=== PATIENT | female | born 1950 ===

== ENCOUNTER 2017-08-11 09:10 | Outpatient (CLI) | payer MEDICARE | END 2017-08-11 11:10 | disposition home or self-care (01) | LOC: ECT 09:10 | DX: F33.2 Major depressive disorder, recurrent severe without psychotic features (principal); F34.1 Dysthymic disorder; F60.9 Personality disorder, unspecified; R73.03 Prediabetes; M19.90 Unspecified osteoarthritis, unspecified site; M85.80 Other specified disorders of bone density and structure, unspecified site; M47.892 Other spondylosis, cervical region; Z81.8 Family history of other mental and behavioral disorders; Z91.5 Personal history of self-harm; N18.2 Chronic kidney disease, stage 2 (mild); Z85.828 Personal history of other malignant neoplasm of skin ==

== ENCOUNTER 2017-08-24 09:05 | Outpatient (RCR) | payer MEDICARE ==
[~2017-08-24] VITALS: Ht 162.6 cm; Wt 75.7 kg
[2017-08-24] MEDS ORDERED: Midazolam 2mg/2ml Inj ONE ×2 (09:06)
[2017-08-24] MEDS ORDERED: NS 500ML ONE ×2 (09:06)
[2017-08-24] MEDS ORDERED: Methohexital Sodium Syr 100mg/10ml IVP ONE ×2 (09:06)
[2017-08-24] MEDS ORDERED: Succinylcholine 20mg/ml 10ml vial ONE ×2 (09:06)
[2017-08-24 11:57] VITALS: BP 120/79
[2017-08-24] MEDS ORDERED: Sodium Chloride 500ML 500 ML IV ONE (12:08)
[2017-08-24 12:10] VITALS: BP 125/67
[2017-08-24 12:15] VITALS: BP 115/65
[2017-08-24 12:20] VITALS: BP 120/69
[2017-08-24 12:25] VITALS: BP 122/76
[2017-08-26] VITALS (7 sets, daily range): BP systolic 115–127; BP diastolic 61–79
[2017-08-26] MEDS ORDERED: Methohexital Sodium Syr 100mg/10ml IVP ONE (07:00)
[2017-08-26] MEDS ORDERED: Succinylcholine 20mg/ml 10ml vial ONE (07:00)
[2017-08-26] MEDS ORDERED: Midazolam 2mg/2ml Inj ONE (07:00)
[2017-08-26] MEDS ORDERED: NS 500ML ONE (07:00)
[2017-08-26] MEDS ORDERED: Sodium Chloride 500ML 500 ML IV ONE (10:35)
[2017-08-28] MEDS ORDERED: Midazolam 2mg/2ml Inj ONE (07:00)
[2017-08-28] MEDS ORDERED: Succinylcholine 20mg/ml 10ml vial ONE (07:00)
[2017-08-28] MEDS ORDERED: NS 500ML ONE (07:00)
[2017-08-28] MEDS ORDERED: Methohexital Sodium Syr 100mg/10ml IVP ONE (07:00)
[2017-08-28 09:26] VITALS: BP 126/78
[2017-08-28] MEDS ORDERED: Sodium Chloride 500ML 500 ML IV ONE (09:44)
[2017-08-28 09:45] VITALS: BP 110/65
[2017-08-28 09:50] VITALS: BP 123/65
[2017-08-28 09:55] VITALS: BP 130/46
[2017-08-28 10:00] VITALS: BP 132/90
[2017-08-31] MEDS ORDERED: Methohexital Sodium Syr 100mg/10ml IVP ONE (07:00)
[2017-08-31] MEDS ORDERED: Succinylcholine 20mg/ml 10ml vial ONE (07:00)
[2017-08-31] MEDS ORDERED: Midazolam 2mg/2ml Inj ONE (07:00)
[2017-08-31] MEDS ORDERED: NS 500ML ONE (07:00)
[2017-08-31 11:10] VITALS: BP 117/83
[2017-08-31] MEDS ORDERED: Atropine Sulfate 0.4mg/ml inj IVP PRN (11:33)
[2017-08-31] MEDS ORDERED: Sodium Chloride 500ML 500 ML IV ONE (11:33)
[2017-08-31 11:35] VITALS: BP 112/64
[2017-08-31 11:40] VITALS: BP 110/63
[2017-08-31 11:45] VITALS: BP_SYST 105; BP_SYST 107; BP_DIAS 66; BP_DIAS 71
[2017-09-02] MEDS ORDERED: NS 500ML ONE (07:00)
[2017-09-02] MEDS ORDERED: Ketorolac 60mg Inj ONE (07:00)
[2017-09-02] MEDS ORDERED: Succinylcholine 20mg/ml 10ml vial ONE (07:00)
[2017-09-02 09:55] VITALS: BP 125/76
[2017-09-02 10:10] VITALS: BP 117/59
[2017-09-02 10:15] VITALS: BP 111/52
[2017-09-02 10:20] VITALS: BP 110/56
[2017-09-02 10:25] VITALS: BP 116/57
[2017-09-02] MEDS ORDERED: Lidocaine 2% 100mg/5ml Carp IV PRN (14:30)
[2017-09-02] MEDS ORDERED: Atropine Sulfate 0.4mg/ml inj IVP PRN ×2 (14:30→14:45)
[2017-09-04] MEDS ORDERED: NS 500ML ONE (07:00)
[2017-09-04] MEDS ORDERED: Succinylcholine 20mg/ml 10ml vial ONE (07:00)
[2017-09-04] MEDS ORDERED: Midazolam 2mg/2ml Inj ONE (07:00)
[2017-09-04] MEDS ORDERED: Methohexital Sodium Syr 100mg/10ml IVP ONE (07:00)
[2017-09-04 09:00] VITALS: BP 114/73
[2017-09-04] MEDS ORDERED: Atropine Sulfate 0.4mg/ml inj IVP PRN (09:23)
[2017-09-04] MEDS ORDERED: Sodium Chloride 500ML 500 ML IV ONE (09:23)
[2017-09-04 09:25] VITALS: BP 104/60
[2017-09-04 09:30] VITALS: BP 104/59
[2017-09-04 09:35] VITALS: BP 105/63
[2017-09-04 09:40] VITALS: BP 107/70
[2017-09-07 09:47] VITALS: BP 110/70
[2017-09-07] MEDS ORDERED: Sodium Chloride 500ML 500 ML IV ONE (10:03)
[2017-09-07] MEDS ORDERED: Atropine Sulfate 0.4mg/ml inj IVP PRN (10:03)
[2017-09-07 10:05] VITALS: BP 121/72
[2017-09-07 10:10] VITALS: BP 107/65
[2017-09-07 10:15] VITALS: BP 99/60
[2017-09-07 10:20] VITALS: BP 108/59
== END 2017-09-19 | disposition home or self-care (01) ==
LOC: ECT 09:05
DX: F33.2 Major depressive disorder, recurrent severe without psychotic features (principal)
CPT/HCPCS: 90870; J0330; J2250; J2405; J7040